=== PATIENT | male | born 1995 | race Caucasian/White ===

== ENCOUNTER 2016-08-15 23:07 | Emergency (ER) | payer OTHER ==
--- NOTE | 2016-08-20 08:22 | ER ---
ADMIT: 08/15/2016 RM/LOC: ER [facility] MR#: [id number] [address] [address] JERRELL YBARRA [address] [place] [address] Emergency Room Report SEX: M AGE: 20 : 1995 DATE: 08/15/2016 HISTORY OF PRESENT ILLNESS: A 20-year-old brought in by ambulance with spasms of his fingers, hands, and toes. He was apparently at work when this started. He also complains of body aches, chills, and a cough. His influenza was negative. DISCHARGE DIAGNOSES: 1. Upper respiratory infection. 2. Anxiety. He was given Ativan in the Emergency Department with carpopedal spasms. Encouraged to follow up this week with his doctor. Maged Monterroso MD/ gila JOB #: [id number] CC: Chaitanya Alexander MD, Attending Physician UNKNOWN, Family Physician
== END 2016-08-16 02:27 | disposition home or self-care (01) ==
LOC: ER 23:07
DX: J06.9 Acute upper respiratory infection, unspecified (principal); F41.9 Anxiety disorder, unspecified